=== PATIENT | female | born 2000 | race Hispanic/Latino ===

== ENCOUNTER 2025-02-11 21:55 | Emergency (ER) | payer MEDICAID, OTHER, SELFPAY | END 2025-02-12 00:13 | disposition home or self-care (01) | LOC: CSHERS 21:55 | DX: N75.0 Cyst of Bartholin's gland (principal) | CPT/HCPCS: 99283 ==

== ENCOUNTER 2025-03-17 01:22 | Emergency (ER) | payer OTHER ==
[2025-03-17] MEDS ORDERED: Tranexamic Acid 1,000 MG/10 ML VIAL ONE (02:05)
[2025-03-17 02:30] LABS: #Basophils Less than 0.03 10x3/uL (0.0-0.2); #Eosinophils 0.11 10x3/uL (0.0-0.5); #Monocytes 0.47 10x3/uL (0.0-1.1); #Neutrophils 5.00 10x3/uL (1.5-8.4); %Basophils 0.3 % (0.0-2.0); %Eosinophils 1.4 % (0.0-6.0); %Lymphocytes 26.7 % (18.0-47.0); %Monocytes 6.1 % (0.0-10.0); %Neutrophils 65.2 % (40.0-75.0); Hematocrit 36.9 % (34.9-44.5); Hemoglobin 12.0 g/dL (12.0-15.5); Mean Corpuscular Hemoglobin 29.9 pg (27.0-33.0); Mean Corpuscular Volume 91.8 fL (81.6-98.3); Platelet Count 225 10x3/uL (150-450); Red Blood Cell (RBC) Count 4.02 10x6/uL (3.90-5.03); White Blood Cell (WBC) Count 7.67 10x3/uL (3.5-10.5)
[2025-03-17 02:42] LABS: BHCG - Serum Negative (NEGATIVE); Pregs Control Background? CLEAR/WHITE (CLR/WHITE); Pregs Control Bar Appear? YES (CONTROL BAR)
== END 2025-03-17 03:00 | disposition home or self-care (01) ==
LOC: CSHERS 01:22
DX: N99.820 Postprocedural hemorrhage of a genitourinary system organ or structure following a genitourinary system procedure (principal); N93.9 Abnormal uterine and vaginal bleeding, unspecified
CPT/HCPCS: 12001; 84703; 85025; 96374